=== PATIENT | female | born 1965 | race African-American/Black ===

== ENCOUNTER 2017-04-07 11:35 | Emergency (ER) | payer OTHER ==
[~2017-04-07] VITALS: Ht 170.2 cm; Wt 102.1 kg
[~2017-04-07 11:35] MED LIST: ALLERGY RELIEF1 EACH PO; COLD MULTI SYM PO; CYCLOBENZAPRINE10 MG ORAL; FLONASE1 SPRAYS; IBUPROFEN600 MG ORAL; IBUPROFEN600 MG PO; MOTRIN800 MG PO; NKM; NORCO 5-325 TA1 EACH PO; ROBAXIN500 MG PO; ZITHROMAX250 MG ORAL
[2017-04-07] MEDS ORDERED: ROBAXIN-750750 MG PO (13:45)
[2017-04-07] MEDS ORDERED: IBUPROFEN600 MG ORAL (13:45)
[2017-04-07 13:55] VITALS: BP 122/75
--- NOTE | 2017-04-07 20:40 | Emergency Room Report ---
History of Present Illness General Chief Complaint: Pain Source: Patient Present Illness HPI The patient is a 52-year-old female presenting with right lower leg pain which began one week prior for no known reason. She does state that she has been standing and walking more than usual for work. She denies any injury to the area. She denies OCP use or smoking. Pain described as an 8/10 dull ache and does not radiate. Pain worse with walking. She has also noticed swelling to the area. She denies other symptoms including nausea, vomiting, fever, chills, cough, shortness of breath, numbness or tingling Allergies: Coded Allergies: No Known Allergies (Unverified , 12/01/12) Patient History Past Medical History: see triage record Pertinent Family History: none Now: No Reviewed Nursing Documentation: PMH: Agreed, PSxH: Agreed Nursing Documentation-PMH Past Medical History: No Stated History Review of Systems All Other Systems: negative except mentioned in HPI Physical Exam Vital Signs Date Time Temp Pulse Resp B/P Pulse Ox O2 Delivery O2 Flow Rate FiO2 04/07/17 11:45 98.4 65 17 123/80 99 Room Air Sp02 EP Interpretation: reviewed, normal General Appearance: no apparent distress, alert, GCS 15, non-toxic Head: normocephalic, atraumatic Eyes: bilateral eye PERRL, bilateral eye normal inspection ENT: hearing grossly normal, normal pharynx, no angioedema, normal voice Neck: full range of motion, supple/symm/no masses Respiratory: chest non-tender, lungs clear, normal breath sounds, no wheezing, speaking full sentences Musculoskeletal: back normal, gait/station normal, normal range of motion, calf tenderness - R, swelling - minimal swelling to the R lower extremity. Non pitting, tender - TTP over the R posterior lower leg Neurologic: alert, oriented x3, responsive, motor strength/tone normal, sensory intact, speech normal Psychiatric: judgement/insight normal, memory normal, mood/affect normal, no suicidal/homicidal ideation Skin: normal color, no rash, warm/dry, well hydrated Lymphatic: no adenopathy Medical Decision Making PA Attestation Dr. Landeros is my supervising physician. Patient management was discussed with my supervising physician Diagnostic Impression: Primary Impression: Muscle strain ER Course The patient is a 52-year-old female presenting with right lower leg pain Ddx considered include but not limited to DVT, sprain/strain, fracture, contusion Physical exam: Vitals within normal limits. No tachycardia or tachypnea There is tenderness to palpation of the mid right calf with associated swelling. No pitting edema. Skin is warm and dry. No rash. Normal gait Full active range of motion of the knee and ankle. D-dimer is elevated Venous duplex is unremarkable The patient will be discharged home with a prescription for Motrin and Robaxin. ER precautions given Laboratory Tests Test 04/07/17 12:25 D-Dimer 743 ng/mL (<500) H Lab Results Impression D dimer elevated CT/MRI/US Diagnostic Results CT/MRI/US Diagnostic Results : Imaging Test Ordered: R venous duplex Impression unremarkable Last Vital Signs Date Time Temp Pulse Resp B/P Pulse Ox O2 Delivery O2 Flow Rate FiO2 04/07/17 13:55 97.8 78 18 122/75 98 Room Air Status: improved Disposition: HOME, SELF-CARE Condition: Improved Scripts Methocarbamol* (ROBAXIN-750*) 750 Mg Tablet 750 MG PO TID, #21 TAB 0 Refills Prov: GOLD ROBLES.A. 04/07/17 Ibuprofen* (MOTRIN*) 600 Mg Tablet 600 MG ORAL Q8H Y for For Pain, #30 TAB 0 Refills Prov: GOLD ROBLES.A. 04/07/17 Patient Instructions: Muscle Strain Additional Instructions: I discussed my findings with the patient. All questions and concerns have been answered. Treatment and medication compliance have been addressed. I advised the patient that they need to follow up with PMD in 3-5 days. Return to ED if symptoms worsen, new symptoms arise, or if needed for any reason. Patient verbalized understanding of discharge instructions. GOLD ROBLES Apr 07, 2017 20:40
== END 2017-04-07 13:55 | disposition home or self-care (01) ==
LOC: EMR 13:06
DX: S86.911A Strain of unspecified muscle(s) and tendon(s) at lower leg level, right leg, initial encounter (principal); X50.9XXA Other and unspecified overexertion or strenuous movements or postures, initial encounter; Y92.89 Other specified places as the place of occurrence of the external cause; R79.89 Other specified abnormal findings of blood chemistry
CPT/HCPCS: 36415; 85379; 93971; 99284